=== PATIENT | male | born 1965 | race Caucasian/White ===

== ENCOUNTER → 2016-11-01 | Outpatient (CLI) | payer BC ==
[2016-11-01 10:25] LABS: CH 31.9; CHCM 33.7; HCT 44.8 % (39.0-53.0); HDW 2.62; HGB 15.2 gm/dL (13.0-17.5); MCH 32.4 pg (25.0-35.0); MCHC 33.9 g/dL (31.0-37.0); MCV 95.4 fL (80.0-100.0); Mean Platelet Volume 7.5; RDW 14.4 % (11.5-15.5)
[2016-11-01 10:45] LABS: ALT 213 U/L (21-72); AST 106 U/L (17-59); Alkaline Phosphatase 62 U/L (38-126); Anion Gap 15 mmol/L; Blood Urea Nitrogen 18 mg/dL (9-20); Calcium 9.7 mg/dL (8.4-10.2); Carbon Dioxide 25 mmol/L (22-30); Chloride 104 mmol/L (98-107); Cholesterol 263 mg/dL (<200); Glucose 107 mg/dL (74-99); HDL Cholesterol 54 mg/dL (40-60); LDH 510 U/L (313-618); Non-African American GFR(MDRD) >60 (>60 ml/min/1.73 sqM); Potassium 3.7 mmol/L (3.5-5.1); Sodium 144 mmol/L (137-145); Total Bilirubin 0.7 mg/dL (0.2-1.3); Total Protein 8.5 g/dL (6.3-8.2); Triglycerides 167 mg/dL (<150)
[2016-11-01 11:14] LABS: Prostate Specific Antigen 3.15 ng/mL (0.00-4.00)
[2016-11-01 12:38] LABS: Hemoglobin A1C 5.7 % (4.2-6.1)
== END | disposition home or self-care (01) ==
LOC: LABWHC1 09:54
PROVIDERS: ATTEND Internal Medicine Critical Care Medicine
DX: C62.90 Malignant neoplasm of unspecified testis, unspecified whether descended or undescended (principal); E78.5 Hyperlipidemia, unspecified; I10 Essential (primary) hypertension
CPT/HCPCS: 36415; 80053; 80061; 82105; 82306; 83036; 83615; 84153; 84402; 84439; 84443; 84702; 85027

== ENCOUNTER → 2017-12-16 | Outpatient (CLI) | payer BC ==
[2017-12-16 10:08] LABS: Basophils # (A) 0.1 k/uL (0-0.2); Basophils % (A) 1 %; Eosinophils # (A) 0.2 k/uL (0-0.7); Eosinophils % (A) 2 %; HCT 47.1 % (39.0-53.0); HGB 14.9 gm/dL (13.0-17.5); Lymphocytes # (A) 2.9 k/uL (1.0-4.8); Lymphocytes % (A) 44 %; MCH 29.7 pg (25.0-35.0); MCHC 31.7 g/dL (31.0-37.0); MCV 93.6 fL (80.0-100.0); Mean Platelet Volume 7.9; Monocytes # (A) 0.3 k/uL (0-1.0); Monocytes % (A) 5 %; Neutrophils % (A) 46 %; Platelet Count 235 k/uL (150-450); RBC 5.03 m/uL (4.30-5.90); RDW 13.7 % (11.5-15.5); WBC 6.6 k/uL (3.8-10.6)
[2017-12-16 11:21] LABS: ALT 102 U/L (21-72); AST 58 U/L (17-59); Albumin 4.7 g/dL (3.5-5.0); Alkaline Phosphatase 56 U/L (38-126); Anion Gap 18 mmol/L; Blood Urea Nitrogen 16 mg/dL (9-20); Calcium 9.6 mg/dL (8.4-10.2); Carbon Dioxide 24 mmol/L (22-30); Chloride 106 mmol/L (98-107); Cholesterol 269 mg/dL (<200); Glucose 110 mg/dL (74-99); HDL Cholesterol 44 mg/dL (40-60); LDL Cholesterol,Calculated 184 mg/dL (0-99); Potassium 4.3 mmol/L (3.5-5.1); Sodium 148 mmol/L (137-145); Total Bilirubin 0.4 mg/dL (0.2-1.3); Total Protein 8.4 g/dL (6.3-8.2); Triglycerides 207 mg/dL (<150)
[2017-12-16 11:35] LABS: T4, Free (Free Thyroxine) 0.99 ng/dL (0.78-2.19)
[2017-12-16 11:49] LABS: PSA Annual Screen 2.87 ng/mL (0.00-4.00)
[2017-12-16 18:10] LABS: Alpha Fetoprotein, Tumor Mkr 4.7 ng/mL (0.0-7.9); Vitamin D 25 Hydroxy 27.7 ng/mL (30.0-100.0)
[2017-12-16 19:37] LABS: Hemoglobin A1C 5.6 % (4.0-6.0)
== END | disposition home or self-care (01) ==
LOC: LABWHC1 09:47
PROVIDERS: ATTEND Internal Medicine Critical Care Medicine
DX: Z00.00 Encounter for general adult medical examination without abnormal findings (principal); C62.90 Malignant neoplasm of unspecified testis, unspecified whether descended or undescended; I10 Essential (primary) hypertension; E78.5 Hyperlipidemia, unspecified; E55.9 Vitamin D deficiency, unspecified
CPT/HCPCS: 84439; 80061; 80053; 84443; 85025; 82105; 82306; 84403; 83036; 36415; G0103

== ENCOUNTER → 2018-12-11 | Outpatient (CLI) | payer BC ==
[2018-12-11 11:33] LABS: Basophils # (A) 0.1 k/uL (0-0.2); Basophils % (A) 1 %; Eosinophils # (A) 0.1 k/uL (0-0.7); Eosinophils % (A) 3 %; HGB 14.1 gm/dL (13.0-17.5); Lymphocytes # (A) 1.9 k/uL (1.0-4.8); Lymphocytes % (A) 39 %; MCH 30.6 pg (25.0-35.0); MCHC 32.1 g/dL (31.0-37.0); MCV 95.4 fL (80.0-100.0); Mean Platelet Volume 7.7; Monocytes # (A) 0.3 k/uL (0-1.0); Monocytes % (A) 7 %; Neutrophils # (A) 2.4 k/uL (1.3-7.7); Neutrophils % (A) 49 %; Platelet Count 213 k/uL (150-450); RBC 4.61 m/uL (4.30-5.90); WBC 4.9 k/uL (3.8-10.6)
[2018-12-11 16:18] LABS: Vitamin D 25 Hydroxy 38.8 ng/mL (30.0-100.0)
[2018-12-11 16:23] LABS: Alpha Fetoprotein, Tumor Mkr <2.5 ng/mL (0.0-7.9)
[2018-12-11 16:24] LABS: Albumin 4.7 g/dL (3.80-4.90); Albumin/Globulin Ratio 1.88 (1.60-3.17); Anion Gap 6.3 mmol/L (4.00-12.00); Calcium 9.5 mg/dL (8.7-10.3); Carbon Dioxide 27.7 mmol/L (21.6-31.8); Globulin 2.5 g/dL (1.6-3.3); LDL Cholesterol,Calculated 82.6 mg/dL (0.0-131.0); Potassium 4.8 mmol/L (3.5-5.5); Total Bilirubin 0.6 mg/dL (0.3-1.2); Total Protein 7.2 g/dL (6.2-8.2); VLDL Calculation 24.4 mg/dL (5.00-40.00)
[2018-12-11 16:30] LABS: T4, Free (Free Thyroxine) 1.1 ng/dL (0.80-1.80)
[2018-12-11 20:05] LABS: Hemoglobin A1C 5.9 % (4.0-6.0)
== END | disposition home or self-care (01) ==
LOC: LABWHC1 10:20
PROVIDERS: ATTEND Internal Medicine Critical Care Medicine
DX: Z00.00 Encounter for general adult medical examination without abnormal findings (principal); I83.90 Asymptomatic varicose veins of unspecified lower extremity; E78.5 Hyperlipidemia, unspecified; I10 Essential (primary) hypertension; C62.90 Malignant neoplasm of unspecified testis, unspecified whether descended or undescended; J44.9 Chronic obstructive pulmonary disease, unspecified; L73.9 Follicular disorder, unspecified; Z12.5 Encounter for screening for malignant neoplasm of prostate
CPT/HCPCS: 84439; 80061; 80053; 84443; 85025; 82105; 82306; 83036; 36415; G0103

== ENCOUNTER → 2020-06-14 | Outpatient (CLI) | payer BC ==
[2020-06-14 10:32] LABS: Basophils % (A) 1 %; Eosinophils # (A) 0.1 k/uL (0-0.7); Eosinophils % (A) 3 %; HCT 46.9 % (39.0-53.0); HGB 14.8 gm/dL (13.0-17.5); Lymphocytes # (A) 1.8 k/uL (1.0-4.8); Lymphocytes % (A) 31 %; MCH 29.8 pg (25.0-35.0); MCHC 31.6 g/dL (31.0-37.0); MCV 94.5 fL (80.0-100.0); Mean Platelet Volume 7.9; Monocytes # (A) 0.4 k/uL (0-1.0); Monocytes % (A) 7 %; Neutrophils # (A) 3.3 k/uL (1.3-7.7); Neutrophils % (A) 57 %; Platelet Count 245 k/uL (150-450); RBC 4.97 m/uL (4.30-5.90); RDW 13.5 % (11.5-15.5); WBC 5.7 k/uL (3.8-10.6)
[2020-06-14 18:35] LABS: Albumin 4.8 g/dL (3.80-4.90); Albumin/Globulin Ratio 2.09 (1.60-3.17); Anion Gap 12.5 mmol/L (4.00-12.00); BUN/Creat Ratio 23.33 Ratio (12.00-20.00); Calcium 9.4 mg/dL (8.7-10.3); Carbon Dioxide 24.5 mmol/L (21.6-31.8); Chol/HDL Ratio 3.56; Globulin 2.3 g/dL (1.6-3.3); LDL Cholesterol,Calculated 83.2 mg/dL (0.0-131.0); Non-African American GFR(CKD) 95.8 (60.0-200.0); Potassium 3.9 mmol/L (3.5-5.5); Total Bilirubin 0.5 mg/dL (0.2-1.2); Total Protein 7.1 g/dL (6.2-8.2); VLDL Calculation 21.8 mg/dL (5.00-40.00)
[2020-06-14 18:43] LABS: PSA Annual Screen 3.5 ng/mL (0.0-4.0)
== END | disposition home or self-care (01) ==
LOC: LABWHC1 09:43
PROVIDERS: ATTEND Internal Medicine Critical Care Medicine
DX: Z00.00 Encounter for general adult medical examination without abnormal findings (principal); C62.90 Malignant neoplasm of unspecified testis, unspecified whether descended or undescended; I10 Essential (primary) hypertension; E78.5 Hyperlipidemia, unspecified; R05 Cough; Z79.899 Other long term (current) drug therapy
CPT/HCPCS: 84439; 80061; 80053; 84443; 85025; 82105; 82306; 83036; 36415; G0103

== ENCOUNTER → 2020-11-23 | Outpatient (CLI) | payer BC ==
--- NOTE | 2020-11-23 09:48 | US ---
EXAMINATION TYPE: US venous doppler duplex LE LT DATE OF EXAM: 11/23/2020 9:42 AM COMPARISON: NONE CLINICAL HISTORY: M79.662 PAIN IN LOWER LIMB. Pt states left thigh cramping SIDE PERFORMED: Left TECHNIQUE: The lower extremity deep venous system is examined utilizing real time linear array sonog thaddeus with graded compression, doppler sonography and color-flow sonography. VESSELS IMAGED: Common Femoral Vein Deep Femoral Vein Greater Saphenous Vein * Femoral Vein Popliteal Vein Small Saphenous Vein * Proximal Calf Veins (* superficial vessels) Left Leg: Negative for DVT Results called to Yeimy at Dr's office at time of exam Grayscale, color doppler, spectral doppler imaging performed of the deep veins of the left lower extr emity. There is normal flow, compressibility, vascular waveforms. IMPRESSION: No ultrasound evidence for acute DVT in the left lower extremity.
== END ==
LOC: RADUSWWP 09:23
PROVIDERS: ATTEND Internal Medicine Critical Care Medicine
DX: M79.662 Pain in left lower leg (principal)

== ENCOUNTER → 2021-07-11 | Outpatient (CLI) | payer BC ==
[2021-07-11 15:01] LABS: Basophils # (A) 0.06 X 10*3/uL (0.00-0.10); Basophils % (A) 1.2 %; Eosinophils # (A) 0.08 X 10*3/uL (0.04-0.35); Eosinophils % (A) 1.6 %; HCT 44.8 % (39.6-50.0); HGB 14.4 g/dL (13.0-17.0); Lymphocytes # (A) 1.78 X 10*3/uL (0.90-5.00); Lymphocytes % (A) 36.5 %; MCH 30.8 pg (27.0-32.0); MCHC 32.1 g/dL (32.0-37.0); MCV 95.7 fL (80.0-97.0); Mean Platelet Volume 10.8 fL (9.5-12.2); Monocytes % (A) 8.2 %; Neutrophils # (A) 2.56 X 10*3/uL (1.80-7.70); Neutrophils % (A) 52.5 %; Platelet Count 202 X 10*3/uL (140-440); RBC 4.68 X 10*6/uL (4.40-5.60); RDW 14.4 % (11.5-14.5); WBC 4.88 X 10*3/uL (4.50-10.00)
[2021-07-11 18:44] LABS: African American GFR (CKD) 117.4 (60.0-200.0); Albumin 4.7 g/dL (3.8-4.9); Albumin/Globulin Ratio 1.61 (1.60-3.17); Anion Gap 15.7 mmol/L (4.00-12.00); BUN/Creat Ratio 21.86 Ratio (12.00-20.00); Blood Urea Nitrogen 16.9 mg/dL (9.0-27.0); Calcium 9.5 mg/dL (8.7-10.3); Carbon Dioxide 22.4 mmol/L (21.6-31.8); Chol/HDL Ratio 4.91 Ratio; Globulin 2.9 g/dL (1.6-3.3); HDL Cholesterol 44.2 mg/dL (40.00-60.00); LDL Cholesterol,Calculated 143.8 mg/dL (0.0-131.0); Non-African American GFR(CKD) 101.3 (60.0-200.0); Potassium 3.9 mmol/L (3.5-5.5); T4, Free (Free Thyroxine) 1.14 ng/dL (0.800-1.800); Total Bilirubin 0.4 mg/dL (0.30-1.20); Total Protein 7.5 g/dL (6.2-8.2)
[2021-07-11 19:04] LABS: PSA Annual Screen 6.2 ng/mL (0.000-4.000)
== END | disposition home or self-care (01) ==
LOC: LABWHC1 09:15
PROVIDERS: ATTEND Internal Medicine Critical Care Medicine
DX: Z00.00 Encounter for general adult medical examination without abnormal findings (principal)
CPT/HCPCS: 84439; 80061; 80053; 84443; 85025; 82306; 83036; 36415; G0103

== ENCOUNTER → 2021-08-10 | Outpatient (CLI) | payer BC | END | disposition home or self-care (01) | LOC: LABWHC1 08:57 | PROVIDERS: ATTEND Internal Medicine Critical Care Medicine | DX: R97.21 Rising PSA following treatment for malignant neoplasm of prostate (principal) | CPT/HCPCS: 36415; 84153 ==

== ENCOUNTER → 2022-05-28 | Outpatient (CLI) | payer BC ==
[2022-05-28 14:40] LABS: Basophils # (A) 0.04 X 10*3/uL (0.00-0.10); Basophils % (A) 0.7 %; Eosinophils # (A) 0.11 X 10*3/uL (0.04-0.35); Eosinophils % (A) 1.9 %; HCT 46.6 % (39.6-50.0); HGB 15.5 g/dL (13.0-17.0); Immature Grans, Automated 0.2 %; Lymphocytes # (A) 2.05 X 10*3/uL (0.90-5.00); Lymphocytes % (A) 35.8 %; MCH 31.3 pg (27.0-32.0); MCHC 33.3 g/dL (32.0-37.0); MCV 94.1 fL (80.0-97.0); Mean Platelet Volume 10.8 fL (9.5-12.2); Monocytes % (A) 8.7 %; NRBC Per 100 WBC 0 /100 WBCS (0.0-0.0); Neutrophils # (A) 3.01 X 10*3/uL (1.80-7.70); Neutrophils % (A) 52.7 %; Platelet Count 232 X 10*3/uL (140-440); RBC 4.95 X 10*6/uL (4.40-5.60); RDW 14.3 % (11.5-14.5); WBC 5.72 X 10*3/uL (4.50-10.00)
[2022-05-28 15:40] LABS: ALT 53 U/L (10-49); AST 35 U/L (14-35); African American GFR (CKD) 114.9 (60.0-200.0); Albumin/Globulin Ratio 1.72 (1.60-3.17); Alkaline Phosphatase 83 U/L (41-126); BUN/Creat Ratio 24.38 Ratio (12.00-20.00); Bilirubin, Conjugated <0.20 mg/dL (0.20-0.40); Blood Urea Nitrogen 19.5 mg/dL (9.0-27.0); Calcium 10.2 mg/dL (8.7-10.3); Carbon Dioxide 25.1 mmol/L (20.0-27.5); Chloride 104 mmol/L (96-109); Chol/HDL Ratio 5.16 Ratio; Globulin 2.9 g/dL (1.6-3.3); Glucose 112 mg/dL (70-110); LDL Cholesterol,Calculated 166.5 mg/dL (0.0-131.0); Non-African American GFR(CKD) 99.2 (60.0-200.0); Potassium 4.7 mmol/L (3.5-5.5); Sodium 142 mmol/L (135-145); Total Protein 7.9 g/dL (6.2-8.2)
== END | disposition home or self-care (01) ==
LOC: LABWHC1 10:07
PROVIDERS: ATTEND Internal Medicine Critical Care Medicine
DX: Z00.00 Encounter for general adult medical examination without abnormal findings (principal); I10 Essential (primary) hypertension; R53.83 Other fatigue; E55.9 Vitamin D deficiency, unspecified; R05.9 Cough, unspecified
CPT/HCPCS: 36415; 80053; 80061; 82105; 82248; 82306; 83036; 84153; 84439; 84443; 85025

== ENCOUNTER → 2024-01-27 | Outpatient (CLI) | payer BC ==
[2024-01-27 19:13] LABS: Basophils # (A) 0.06 X 10*3/uL (0.00-0.10); Eosinophils # (A) 0.15 X 10*3/uL (0.04-0.35); Eosinophils % (A) 2.5 %; HGB 15.3 g/dL (13.0-17.0); Lymphocytes # (A) 2.54 X 10*3/uL (0.90-5.00); Lymphocytes % (A) 42.2 %; MCH 30.7 pg (27.0-32.0); MCHC 32.6 g/dL (32.0-37.0); MCV 94.2 FL (80.0-97.0); Monocytes # (A) 0.55 X 10*3/uL (0.20-1.00); Monocytes % (A) 9.1 %; NRBC Per 100 WBC 0 X 10*3/uL (0.00-0.01); Neutrophils # (A) 2.71 X 10*3/uL (1.80-7.70); Platelet Count 229 X 10*3/uL (140-440); RBC 4.99 X 10*6/uL (4.40-5.60); RDW 14.4 % (11.5-14.5); WBC 6.02 X 10*3/uL (4.50-10.00)
[2024-01-27 19:45] LABS: ALT 72 U/L (10-49); AST 42 U/L (14-35); Albumin 4.9 g/dL (3.8-4.9); Albumin/Globulin Ratio 1.53 Ratio (1.60-3.17); Alkaline Phosphatase 74 U/L (41-126); BUN/Creat Ratio 22.75 Ratio (12.00-20.00); Blood Urea Nitrogen 18.2 mg/dL (9.0-27.0); Calcium 10.3 mg/dL (8.7-10.3); Carbon Dioxide 21.9 mmol/L (21.6-31.8); Chloride 106 mmol/L (96-109); Globulin 3.2 g/dL (1.6-3.3); Glucose 112 mg/dL (70-110); LDL Cholesterol,Calculated 160.8 mg/dL (0.0-131.0); Potassium 4.4 mmol/L (3.5-5.5); Sodium 144 mmol/L (135-145); T4, Free (Free Thyroxine) 1.11 ng/dL (0.80-1.80); Total Bilirubin 0.4 mg/dL (0.3-1.2); Total Protein 8.1 g/dL (6.2-8.2)
== END | disposition home or self-care (01) ==
LOC: LABWHC1 13:18
PROVIDERS: ATTEND Internal Medicine Critical Care Medicine
DX: Z00.00 Encounter for general adult medical examination without abnormal findings (principal); Z12.5 Encounter for screening for malignant neoplasm of prostate; C62.90 Malignant neoplasm of unspecified testis, unspecified whether descended or undescended; E78.5 Hyperlipidemia, unspecified; R97.20 Elevated prostate specific antigen [PSA]
CPT/HCPCS: 84439; 80061; 80053; 84443; 85025; 82105; 82306; 83036; 36415; G0103

== ENCOUNTER → 2025-02-08 | Outpatient (CLI) | payer BC ==
[2025-02-08 16:27] LABS: ALT 76 U/L (10-49); AST 40 U/L (14-35); Albumin 4.6 g/dL (3.8-4.9); Albumin/Globulin Ratio 1.53 Ratio (1.60-3.17); Alkaline Phosphatase 65 U/L (41-126); BUN/Creat Ratio 23.11 Ratio (12.00-20.00); Blood Urea Nitrogen 20.8 mg/dL (9.0-27.0); Carbon Dioxide 23.2 mmol/L (21.6-31.8); Chloride 106 mmol/L (96-109); Chol/HDL Ratio 5.84 Ratio; Glucose 119 mg/dL (70-110); LDL Cholesterol,Calculated 171.8 mg/dL (0.0-131.0); Prostate Specific Antigen 6.07 ng/mL (0.000-3.500); Sodium 143 mmol/L (135-145); Total Bilirubin 0.4 mg/dL (0.3-1.2); Total Protein 7.6 g/dL (6.2-8.2)
[2025-02-08 17:56] LABS: Basophils # (A) 0.05 X 10*3/uL (0.00-0.10); Basophils % (A) 0.8 %; Eosinophils # (A) 0.15 X 10*3/uL (0.04-0.35); Eosinophils % (A) 2.3 %; HCT 44.4 % (39.6-50.0); HGB 14.2 g/dL (13.0-17.0); Lymphocytes # (A) 2.87 X 10*3/uL (0.90-5.00); Lymphocytes % (A) 44.4 %; MCH 30.6 pg (27.0-32.0); MCV 95.7 FL (80.0-97.0); Mean Platelet Volume 11.3 FL (9.5-12.2); Monocytes # (A) 0.65 X 10*3/uL (0.20-1.00); Monocytes % (A) 10.1 %; NRBC Per 100 WBC 0 X 10*3/uL (0.00-0.01); Neutrophils # (A) 2.73 X 10*3/uL (1.80-7.70); Neutrophils % (A) 42.2 %; Platelet Count 229 X 10*3/uL (140-440); RBC 4.64 X 10*6/uL (4.40-5.60); RDW 15.9 % (11.5-14.5); WBC 6.46 X 10*3/uL (4.50-10.00)
== END | disposition home or self-care (01) ==
LOC: LABWHC1 07:40
PROVIDERS: ATTEND Internal Medicine Critical Care Medicine
DX: C62.90 Malignant neoplasm of unspecified testis, unspecified whether descended or undescended (principal); E78.5 Hyperlipidemia, unspecified; R97.20 Elevated prostate specific antigen [PSA]
CPT/HCPCS: 36415; 80053; 80061; 82306; 83036; 84153; 84439; 84443; 85025